=== PATIENT | male | born 1985 | race Two or more races ===

== ENCOUNTER 2021-10-17 11:26 | Emergency (ER) | payer OTHER ==
[2021-10-17 13:24] LABS: CORONAVIRUS COVID-19 NAA POSITIVE (NEGATIVE)
== END 2021-10-17 14:30 | disposition home or self-care (01) ==
LOC: JD.ED 11:26
DX: U07.1 COVID-19 (principal)
CPT/HCPCS: 0241U; 99284; 99283

== ENCOUNTER 2022-08-10 18:15 | Emergency (ER) | payer OTHER ==
[2022-08-10] MEDS ORDERED: Ketorolac 60 MG/2 ML SDV IM ONE (19:31)
[2022-08-10] MEDS ORDERED: diphenhydrAMINE 50 MG/ML SDV IM ONE (19:31)
== END 2022-08-10 19:56 | disposition home or self-care (01) ==
LOC: JD.ED 18:15
DX: G89.29 Other chronic pain (principal); M25.512 Pain in left shoulder
CPT/HCPCS: 96372; 99283; J1200; J1885

== ENCOUNTER 2022-11-15 05:42 | Emergency (ER) | payer OTHER ==
[2022-11-15 06:40] LABS: CORONAVIRUS COVID-19 NAA NEGATIVE (NEGATIVE)
[2022-11-15] MEDS ORDERED: diphenhydrAMINE 50 MG/ML SDV IVPUSH ONE (07:23)
[2022-11-15] MEDS ORDERED: Lactated Ringers 1,000 ML IV ONE (07:23)
[2022-11-15] MEDS ORDERED: Metoclopramide 10 MG/2 ML SDV IVPUSH ONE (07:23)
[2022-11-15] MEDS ORDERED: Ketorolac 30 MG/ML SDV IVPUSH ONE (07:23)
== END 2022-11-15 09:11 | disposition home or self-care (01) ==
LOC: JD.ED 05:42
DX: R51.9 Headache, unspecified (principal); Z20.822 Contact with and (suspected) exposure to COVID-19
CPT/HCPCS: 0241U; 96361; 96374; 96375; 99284; J1200; J1885; J2765; J7120; 99282